=== PATIENT | female | born 1960 | race Caucasian/White ===

== ENCOUNTER 2018-01-12 00:56 | Emergency (ER) | payer BC ==
[~2018-01-12] VITALS: Ht 167.6 cm; Wt 55.9 kg
[2018-01-12 02:00] VITALS: BP 144/83
[2018-01-12] MEDS ORDERED: ketorolac trometh inj. 60 MG/2 ML VIAL IM ONE (02:20)
[2018-01-12] MEDS ORDERED: HYDR-3965 PO (02:20)
[2018-01-12] MEDS ORDERED: morphine 4 MG/ML inj SYRINge IM ONE (02:20)
[2018-01-12] MEDS ORDERED: ondansetron/PF 4mg/2ml inj IM ONE (02:20)
== END 2018-01-12 02:52 | disposition home or self-care (01) ==
LOC: ER 00:57
DX: R10.2 Pelvic and perineal pain (principal); Z98.890 Other specified postprocedural states; Z88.2 Allergy status to sulfonamides; Z88.8 Allergy status to other drugs, medicaments and biological substances; Z79.899 Other long term (current) drug therapy
CPT/HCPCS: 96372; 99284; J1885; J2270; J2405

== ENCOUNTER 2020-06-14 12:48 | Emergency (ER) | payer BC ==
[~2020-06-14] VITALS: Ht 167.6 cm; Wt 56.8 kg
[2020-06-14 14:23] LABS: EOSINOPHILS # (AUTO) 0.2 X10'3 (0-0.9); EOSINOPHILS % (AUTO) 4.9 % (0-6); HEMOGLOBIN 12.5 g/dl (12.0-16.0); LYMPHOCYTES % (AUTO) 28.3 % (21-51); MEAN CORPUSCULAR HEMOGLOBIN 32.2 PG (27.0-31.0); MEAN CORPUSCULAR HGB CONC 33.7 g/dL (33.0-36.5); MEAN CORPUSCULAR VOLUME 95.5 FL (78-98); MEAN PLATELET VOLUME 9.1 FL (7.4-10.4); MONOCYTES # (AUTO) 0.3 X10'3 (0-0.9); NEUTROPHILS % (AUTO) 56.8 % (42-75); PLATELET COUNT 183 X10'3 (140-440); RED BLOOD COUNT 3.87 X10'6 (4.20-5.60); RED CELL DISTRIBUTION WIDTH 13.3 % (11.5-14.5); WHITE BLOOD COUNT 3.5 X10'3 (4.5-11.0)
[2020-06-14 14:38] LABS: ALANINE AMINOTRANSFERASE 33 U/L (12-78); ALBUMIN 3.9 G/DL (3.4-5.0); ALBUMIN/GLOBULIN RATIO 1.3 (1.1-1.5); ALKALINE PHOSPHATASE 68 IU/L (46-116); ANION GAP 6 (8-16); ASPARTATE AMINO TRANSFERASE 22 U/L (10-37); BILIRUBIN,TOTAL 0.4 MG/DL (0.1-1.0); BLOOD UREA NITROGEN 15 MG/DL (7-18); BUN/CREATININE RATIO 20.5 (6.6-38.0); CALCIUM 9.1 MG/DL (8.5-10.1); CHLORIDE 106 MMOL/L (99-107); CREATININE 0.73 MG/DL (0.40-0.90); GLUCOSE 98 MG/DL (70-104); POTASSIUM 4.1 MMOL/L (3.5-5.1); SODIUM 141 MMOL/L (135-145); TOTAL CARBON DIOXIDE 29.3 MMOL/L (24-32); TOTAL PROTEIN 6.9 G/DL (6.4-8.2); eGFR 81 ML/MIN
[2020-06-14 15:43] LABS: D-DIMER 0.22 MG/L FEU (0-0.50)
[2020-06-14 17:13] VITALS: BP 130/84
== END 2020-06-14 18:21 | disposition home or self-care (01) ==
LOC: ER 12:48
DX: R07.89 Other chest pain (principal); R11.0 Nausea; Z87.440 Personal history of urinary (tract) infections; Z85.3 Personal history of malignant neoplasm of breast; Z98.890 Other specified postprocedural states; Z88.1 Allergy status to other antibiotic agents; Z88.8 Allergy status to other drugs, medicaments and biological substances
CPT/HCPCS: 36415; 71045; 80053; 83880; 84484; 85025; 85379; 93005; 99285